=== PATIENT | female | born 1980 | race Caucasian/White ===

== ENCOUNTER 2024-05-21 17:47 | Emergency (ER) | payer OTHER, SELFPAY ==
[2024-05-21 17:52] VITALS: BP 170/111
--- NOTE | 2024-05-21 19:24 | ED.GENMED ---
History of Present Illness
General
Chief Complaint: Foreign Body Removal
Source: patient
Exam Limitations: none
Time Seen by Provider: 05/21/24 18:49
Nursing documentation reviewed up to this point in time: agreed with
History of Present Illness
History of Present Illness:
43 yo female presents to the emergency department with right foot., Suspicious that there is a foreign body in her foot. She stepped on glass, but her removed it.
Past History
Past History
ED Past Medical History: HTN, IDDM, Psychiatric (anxiety) and Other (Kidney stones, Pyelonephritis)
ED Past Surgical History: Cholecystectomy, (X3) and Urological (Stent with removal, Lithotripsy)
Social History
Tobacco: Non-smoker
Alcohol: Daily (Wine or Vodka 2-3 drinks)
Drug: None
Personal: (with boyfriend)
Living: with family
Employment: Employed
Family History
Family History: Diabetes
Phy Exam
Physical Exam
Physical Exam:
No acute distress, afebrile, mild hypertension. Tender to palpation at mid plantar region on the right.
Course
Orders/Labs/Results
Orders:
Orders
05/21/24 17:56
Foot, Right 3 View [CR Foot - Right Min 3 Views] Urgent
Comment: questionable foreign body
Reason For Exam: pain
Vital Signs
Initial and Last Documented VS:
Initial Vital Signs
Temp Pulse Resp BP Pulse Ox
98.3 F 104 20 170/111 98
05/21/24 17:52 05/21/24 17:52 05/21/24 17:52 05/21/24 17:52 05/21/24 17:52
Last Documented Vital Signs
Temp Pulse Resp BP Pulse Ox
98.3 F 98 18 172/103 99
05/21/24 17:52 05/21/24 19:43 05/21/24 19:43 05/21/24 19:43 05/21/24 19:43
Procedures
Incision/Drainage/Joint Aspiration
Right Plantar Foot:
Anethesia: 1% Lidocaine with Epi
Preparation: cleaned with Betadine
Type of procedure: incise and drain
Nature of site: abscess
Description of abscess: less than 3cm
Loculations broken up: Yes
How much fluid was obtained?: small amount
Fluid description: purulent
Treatment: left open for drainage and antibiotics started
Additional information:
no foreign body or glass seen or palpated
MDM/Problems Addressed
Differential Diagnosis Includes:
Abscess, foreign body
MDM/Problems Addressed:
43-year-old female with abscess of right plantar surface, incision and drainage completed. Keflex started.
Chronic conditions affecting care: DM
*Radiology
Radiology exam reviewed: radiology read reviewed (Right foot x-ray no foreign body)
*Critical Care Note
Total Time (30-74mins, 75-104mins- exclusive of procedures): Not Applicable
Patient Management
Social determinants of health affecting care: Living situation
Escalation/DeEscalation of care consider admission/obs:
Admit not indicated
ED Attending Note
-
Portions of this chart may have been created with voice recognition software.� Occasional wrong word or��sound alike� substitutions may have occurred due to the inherent limitations of voice recognition software.
Discharge Plan
Departure
Patient Disposition: Home (Routine Discharge)
Date of Disposition: 05/21/24
Time of Disposition: 19:25
Patient with high blood pressure during this ER visit?: Yes
Condition: Good
Discharge Problem:
Abscess of right foot
Instructions: Abscess Incision and Drainage, BLOOD PRESSURE
Prescriptions:
New
cephalexin 500 mg capsule
500 mg PO TID 7 Days Qty: 21 0RF
No Action
amoxicillin-pot clavulanate 875-125 mg Tablet
1 tab PO Q12 Qty: 6 0RF
insulin glargine [Lantus Solostar U-100 Insulin] 100 unit/mL (3 mL) insulin pen
12 unit SC QPM Qty: 15 5RF
insulin aspart U-100 [Novolog FlexPen U-100 Insulin] 100 unit/mL (3 mL) Insulin Pen
5 unit SC AC Qty: 15 5RF
acetaminophen 325 mg Tablet
650 mg PO Q4HPRN PRN (Reason: mild pain /fever >100.4) Qty: 1 0RF
dextromethorphan-guaifenesin 10-100 mg/5 mL Syrup
10 ml PO Q4HPRN PRN (Reason: cough) Qty: 1 0RF
benzonatate 100 mg Capsule
200 mg PO TIDPRN PRN (Reason: cough) Qty: 21 0RF
(DME) lancets [BD Ultra-Fine II Lancets] 30 gauge misc
See Rx Instructions .Route Qty: 100 0RF
Rx Instructions:
As directed
(DME) pen needle, diabetic [BD Ultra-Fine Micro Pen Needle] 32 gauge x 1/4' needle
See Rx Instructions .Route Qty: 100 0RF
Rx Instructions:
As directed
(DME) blood sugar diagnostic Strip
See Rx Instructions .Route Qty: 100 0RF
Rx Instructions:
As directed
Referrals:
Sonia Jacobs PA-C [Family Provider] -
Chris Brewster DPM [Specified Professional Personl] - Call in 1-3 days for appt
Interventions
Interventions:
*Risk Screen - Suicide Last Done: 05/21/24 18:56
*General Assessment Last Done: 05/21/24 18:56
*Neglect/Abuse Screening Last Done: 05/21/24 18:56
ED- Fall Risk Assessment Last Done: 05/21/24 18:56
*ED COVID-19 Vaccine History Last Done: 05/21/24 18:56
*Nursing Disposition Last Done: 05/21/24 19:44
Discharge Date and Time
Discharge Date/Time: 05/21/24 19:45
Print Language: [place]
[2024-05-21 19:43] VITALS: BP 172/103
== END 2024-05-21 19:45 | disposition home or self-care (01) ==
LOC: EMR 17:47
PROVIDERS: EMERGENCY PHYSICIAN Emergency Medicine; FAMILY PHYSICIAN Physician Assistant Medical
DX: L02.611 Cutaneous abscess of right foot (principal); E11.9 Type 2 diabetes mellitus without complications; I10 Essential (primary) hypertension; Z79.4 Long term (current) use of insulin
CPT/HCPCS: 99283; 10060; 73630